=== PATIENT | female | born 1980 | race Native Hawaiian/Other Pacific Islander ===

== ENCOUNTER 2017-08-02 10:06 | Inpatient (IN) | payer OTHER ==
[2016-06-03 22:55] VITALS: BMI 24.7
[2017-08-02 11:02] LABS: BASO % 0.5 % (0.0-2.0); EOS # 0.1 K/uL (0.0-0.7); EOS % 1.7 % (0.0-4.0); HEMATOCRIT 40.1 % (34.0-47.0); LYMPH # 1.2 K/uL (1.0-4.3); LYMPH % 15.4 % (20.0-40.0); MEAN CELL VOLUME 79.9 fL (81.0-99.0); MEAN CORPUSCULAR HEMOGLOBIN 26.1 pg (27.0-31.0); MEAN CORPUSCULAR HGB CONC 32.7 g/dL (33.0-37.0); MEAN PLATELET VOLUME 9.2 fL (7.2-11.7); MONO # 0.8 K/uL (0.0-0.8); MONO % 9.7 % (0.0-10.0); NRBC % 0.3 % (0.0-2.0); RED CELL DISTRIBUTION WIDTH 13.8 % (11.5-14.5); WHITE BLOOD COUNT 7.8 K/uL (4.8-10.8)
[2017-08-02 11:07] LABS: INR 0.9
[2017-08-02 11:10] LABS: URINE BILIRUBIN NEGATIVE (NEGATIVE); URINE BLOOD NEGATIVE (NEGATIVE); URINE COLOR Straw (YELLOW); URINE GLUCOSE (UA) NORMAL (Normal); URINE KETONE NEGATIVE (NEGATIVE); URINE LEUKOCYTE ESTERASE NEG Leu/uL (Negative); URINE PROTEIN NEGATIVE (NEGATIVE); URINE UROBILINOGEN NORMAL mg/dL (0.2-1.0)
[2017-08-02 11:14] LABS: ALB/GLOB RATIO 0.8 (1.0-2.1); ALKALINE PHOSPHATASE 99 U/L (38-126); ALT/SGPT 30 U/L (9-52); AST/SGOT 31 U/L (14-36); BILIRUBIN,TOTAL 0.3 mg/dL (0.2-1.3); BLOOD UREA NITROGEN 11 mg/dL (7-17); CALCIUM 8.1 mg/dl (8.6-10.4); CARBON DIOXIDE 24 mmol/L (22-30); CHLORIDE 104 mmol/L (98-107); GFR AFRICAN-AMERICAN > 60; GLUCOSE,RANDOM 91 mg/dL (65-105); POTASSIUM 3.7 mmol/L (3.6-5.2); SODIUM 133 mmol/L (132-148); URIC ACID 6.3 mg/dL (2.2-7.5)
[2017-08-02] MEDS ORDERED: Betamethasone Soluspan 30 mg/5mL Inj Susp IM ONE (11:30)
[2017-08-02] MEDS ORDERED: Magnesium Sulfate 4 gm/100 ml 4 GM/100 ML BAG IVPB ONE ×2 (14:27→14:30)
[2017-08-02] MEDS ORDERED: Lactated Ringer's 1,000 ML IV SCH (14:30)
[2017-08-02] MEDS ORDERED: Magnesium Sulfate 20 gm 20 GM/500 ML BAG IV SCH (14:45)
[2017-08-02] MEDS ORDERED: Magnesium Sulfate 20 gm 20,000 MG/500 ML BAG IV ONE (14:49)
[2017-08-02 14:50] LABS: MAGNESIUM 1.7 mg/dL (1.6-2.3)
--- NOTE | 2017-08-02 15:18 | OBHP ---
Datetime: 08/02/2017 10:38 IP Adm Impression: , intrauterine IP Chief Complaint Other: Elevated BP IP Admit Plan: Observation/Evaluation Admit Comment, IP Provider: Patient is a 37 year old at 35w6d RICKI 08/31/17 by LMP presents to L+D from clinic for evaluation of elevated blood pressures. Patient has a history of chronic HTN yolanda t was diagnosed in 2006. Patient is on anti-hypertensive medication, however she does not remember th e name. Last took her medication last night. Offers no complaints at this time. Endorses +FM, denies CTX, LOF, VB. Admits to occasionally having headaches but denies having a headache currently. Denies dizziness, visual changes, RUQ/epigastric pain, urinary symptoms. Issues: Advanced Maternal Age Abnormal 1 hr, 3 hr within normal limits Previous C/S x 2 OB Hx: 1. 2002 PLTCD at term 2/2 "cord around baby's neck", Male infant, 3.3kg 2. 2006 RLTCD at term, Male infant, 3.7kg 3. Current GUIDE EXCURSION Hx: LMP - 11/24/16 [facility] - 13 x regular x 5 days Denies hx of fibroids, ovarian cysts, STIS Denies hx of abnormal pap smears Allergies: NKDA Medications: PNV, Medical Hx: Chronic HTN Surgical Hx: C/S x 2 Social Hx: Denies alcohol, tobacco, drug use; lives with children and , works at [employer] Hx: Mother - HTN; Father - Low blood pressure PE: See above A/P: 37 year old at 35w6d presents with elevated blood pressure -Stable, afebrile -CEFM and TOCO -Will send [facility] labs -Monitor BPs q15min -Plan d/w attending Anisa Paredes DO PGY-1 OB Addendum: Patient is taking procardia 30mg daily. PIH labs reviewed. Will give celestone. Ob attending patient examined with resident.agree with resident exam , assessmet and plan Patient referred from clinic due to elevated blood pressure.BP 140-150S/90-101 here Patient denies any symptoms A/P Patient with chronic hypertension , on procardia 30mg xl; elevated bp.patient asymptamtic.eval aute for superimposed severe pre-eclamspia -celestone -start magensiu.-start 24 hour urine collection for protein -repeat labs in am -if bp start in seveer range or patient becoems sypmtomatic then consider delivery Pelvic Type - PN: Adequate Extremities - PN: Normal Abdomen - PN: Normal Back - PN: Normal Lungs - PN: Normal Heart - PN: Normal General - PN: Normal FHR - Baseline A Provider: 125 Contraction Comments Provider: occasional Comments, ACOG Physical Exam: VS reviewed Gen: AAOx3 CV: RRR Lungs: CTA B/L Abd: soft, gravid, non-tender Ext: no clubbing, cyanosis, edema Gestation - Est Wks by US: 35.6 IP Hx Assessment: The History has been Reviewed and is Current EGA AdmitDate IP: 35.6 Vital Signs Provider: Reviewed IP Chief Complaint: Other NICHD Variability Prov Fetus A: Moderate 6-25bpm NICHD Accel Fetus A IP Provider: 15X15 FHR Category Provider Fetus A: Category I NICHD Decel Fetus A IP Provider: None Genitourinary Exam: Normal DTRs - PN: Normal
[2017-08-02] MEDS ORDERED: NIFEdipine 30 mg ER Tab PO STA (20:50)
[2017-08-03] MEDS ORDERED: Magnesium Sulfate 20 gm 20,000 MG/500 ML BAG IV ONE (01:05)
[2017-08-03 09:02] LABS: BASO % 0.5 % (0.0-2.0); HEMATOCRIT 38.9 % (34.0-47.0); LYMPH # 1.1 K/uL (1.0-4.3); LYMPH % 13.3 % (20.0-40.0); MEAN CELL VOLUME 79.3 fL (81.0-99.0); MEAN CORPUSCULAR HEMOGLOBIN 26.6 pg (27.0-31.0); MEAN CORPUSCULAR HGB CONC 33.5 g/dL (33.0-37.0); MEAN PLATELET VOLUME 8.9 fL (7.2-11.7); MONO # 0.6 K/uL (0.0-0.8); MONO % 7.1 % (0.0-10.0); RED CELL DISTRIBUTION WIDTH 14.1 % (11.5-14.5); WHITE BLOOD COUNT 8.1 K/uL (4.8-10.8)
[2017-08-03 09:18] LABS: ALB/GLOB RATIO 1.1 (1.0-2.1); ALKALINE PHOSPHATASE 108 U/L (38-126); ALT/SGPT 34 U/L (9-52); AST/SGOT 31 U/L (14-36); BILIRUBIN,TOTAL 0.4 mg/dL (0.2-1.3); BLOOD UREA NITROGEN 15 mg/dL (7-17); CALCIUM 6.9 mg/dl (8.6-10.4); CARBON DIOXIDE 17 mmol/L (22-30); CHLORIDE 102 mmol/L (98-107); GFR AFRICAN-AMERICAN > 60; GLUCOSE,RANDOM 118 mg/dL (65-105); POTASSIUM 4.3 mmol/L (3.6-5.2); SODIUM 130 mmol/L (132-148); TOTAL PROTEIN 6.9 g/dL (6.3-8.3); URIC ACID 7.8 mg/dL (2.2-7.5)
[2017-08-03 09:22] LABS: INR 0.9
[2017-08-03 10:19] LABS: MAGNESIUM 4.1 mg/dL (1.6-2.3)
--- NOTE | 2017-08-03 11:31 | US ---
Indication: Chronic hypertension Comparison: None available Technique: OB limited/biophysical profile ultrasound Findings: There is a single living fetus in cephalic presentation. Amniotic fluid volume is within normal limits, 13.0 cm. Anterior placenta. The placenta is not previa. There are no adnexal masses or cysts evident. Measurements and calculations: Fetus has a composite sonographic age of 35 weeks 2 days. This calculation is based on the biparietal diameter, head circumference, abdominal circumference, and femur length. Estimated heart rate 118.4 beats per min. Umbilical cord appears draped around the neck. Prominent/dilated left collecting system. Please note that a whole anatomic survey of the fetus was not performed. This should be performed on an outpatient elective basis as clinically warranted. movements 2/2 breathing 2/2 tone 2/2 Amniotic fluid 2/2 Total score impression: 03/29 Impression: Live single intrauterine with estimated gestational age 35 weeks 2 days. heart rate 118.4 bpm. Biophysical profile of 8 out of 8. Prominent/dilated left collecting system. Umbilical cord appears draped around the neck.
[2017-08-03] MEDS ORDERED: Betamethasone Soluspan 30 mg/5mL Inj Susp IM ONE (12:30)
--- NOTE | 2017-08-03 13:17 | OBPN ---
Datetime: 08/03/2017 08:45 IP Progress Impression Other: Chronic HTN, on mag sulfate IP Progress Plan: Continue present management Contraction Comments Provider: occasional FHR - Baseline A Provider: 120 IP Progress Note Comment: Patient is doing well this morning. Admits to feeling dizziness. Endorses +FM, denies CTX, VB, LOF. Denies headaches, visual changes, cp, palpitations, sob, RUQ/epigastric kathya n. Patient states that she was taking a different blood pressure prior to however does not know the name of the medication. VSS Gen: AAOx3 CV: RRR Lungs: CTA B/L Abd: Soft, gravid, no RUQ/epigastric tenderness Ext: No clubbing, cyanosis, edema; no calf tenderness; UE/LE reflexes +2/4 A/P: 37 year old at 36w2d with Chronic HTN on Procardia XL, AMA, previous C/S x 2 who was admitted for elevated BPs -Stable, afebrile -CEFM and TOCO -BPs normatensive -Continue mag sulfate -Repeat PIH labs this am, 24 hour urine collection in progress -Will send for OB US/BPP today -To recieve second dose of celestone -Plan discussed with attending Anisa Paredes DO PGY-1 OB Addendum (12:50pm): Patient is s/p mag sulfate and celestone x 2 doses. Repeat PIH labs reviewe d. BPP 03/29. 24 hour urine collection completed. Recommending patient return to L+D on Tuesday08/08/17 for weekly NST. Patient will continue Procardia XL 30mg QHS, Pre-term labor precautions given. Ghazalae nt to follow up with [facility] in 1 week. Plan discussed attending. Attending Note (1300 hours): Patient has been seen, evaluated, interviewed and exmained by me with the Resident. I agree with the documentation of events as described above. [facility] RICKI 08/29/17 by ultrasound 7/15/17 at 14w 5d, confirming AGA today 36w 2d. Repeat C/S to be scheduled at 39 weeks = 08/23/17 (with BTL). Patient given strict instructions re: taking h er medication as prescribed. Risk, possible adverse outcomes from non complicance were stressed. Ghazala ent also encouraged to increase p.o. intake of water to the order of half her weight in ounces on a d aily basis. S/S pre-eclampsia and PTL were also erviewed. Patient expressed an understanding and agr ees. Her questions and concerns were answered and addressed. Patient discharged home in stable condi tion. Vital Signs Provider: Reviewed; Within Normal Limits NICHD Accel Fetus A IP Provider: 15X15 FHR Category Provider Fetus A: Category I NICHD Variability Prov Fetus A: Moderate 6-25bpm NICHD Decel Fetus A IP Provider: None Datetime: 08/02/2017 10:38 Gestation - Est Wks by US: 35.6
== END 2017-08-03 13:20 | disposition home or self-care (01) | DRG 886 ==
LOC: C.EROB 10:06 → C.4D 14:34
PROVIDERS: ADMIT Student in an Organized Health Care Education/Training Program; ATTEND Student in an Organized Health Care Education/Training Program
DX: O10.913 Unspecified pre-existing hypertension complicating pregnancy, third trimester (principal); I10 Essential (primary) hypertension; O34.219 Maternal care for unspecified type scar from previous cesarean delivery; Z3A.36 36 weeks gestation of pregnancy; O09.523 Supervision of elderly multigravida, third trimester

== ENCOUNTER 2017-08-08 09:16 | Inpatient (IN) | payer OTHER ==
[2017-08-08 09:28] VITALS: BMI 31.1
[2017-08-08] MEDS ORDERED: Labetalol 25mg/5ml Syringe IVP STA ×2 (09:28→10:23)
[2017-08-08 10:11] LABS: BASO # 0.1 K/uL (0.0-0.2); BASO % 0.9 % (0.0-2.0); EOS # 0.2 K/uL (0.0-0.7); HEMATOCRIT 39.5 % (34.0-47.0); LYMPH # 1.6 K/uL (1.0-4.3); LYMPH % 20.1 % (20.0-40.0); MEAN CELL VOLUME 79.6 fL (81.0-99.0); MEAN CORPUSCULAR HEMOGLOBIN 26.6 pg (27.0-31.0); MEAN CORPUSCULAR HGB CONC 33.4 g/dL (33.0-37.0); MEAN PLATELET VOLUME 8.9 fL (7.2-11.7); MONO # 0.7 K/uL (0.0-0.8); MONO % 8.2 % (0.0-10.0); NRBC % 0.1 % (0.0-2.0); RED CELL DISTRIBUTION WIDTH 14.1 % (11.5-14.5); WHITE BLOOD COUNT 8.2 K/uL (4.8-10.8)
[2017-08-08 10:22] LABS: INR 0.9
[2017-08-08 10:23] LABS: ALB/GLOB RATIO 0.8 (1.0-2.1); ALKALINE PHOSPHATASE 104 U/L (38-126); ALT/SGPT 38 U/L (9-52); AST/SGOT 31 U/L (14-36); BILIRUBIN,TOTAL 0.3 mg/dL (0.2-1.3); BLOOD UREA NITROGEN 12 mg/dL (7-17); CARBON DIOXIDE 24 mmol/L (22-30); CHLORIDE 102 mmol/L (98-107); GFR AFRICAN-AMERICAN > 60; GLUCOSE,RANDOM 91 mg/dL (65-105); POTASSIUM 4.2 mmol/L (3.6-5.2); SODIUM 131 mmol/L (132-148); TOTAL PROTEIN 7.9 g/dL (6.3-8.3); URIC ACID 6.8 mg/dL (2.2-7.5)
[2017-08-08 10:28] LABS: URINE BILIRUBIN NEGATIVE (NEGATIVE); URINE BLOOD NEGATIVE (NEGATIVE); URINE COLOR Straw (YELLOW); URINE GLUCOSE (UA) NORMAL (Normal); URINE KETONE NEGATIVE (NEGATIVE); URINE LEUKOCYTE ESTERASE NEG Leu/uL (Negative); URINE PROTEIN NEGATIVE (NEGATIVE); URINE UROBILINOGEN NORMAL mg/dL (0.2-1.0)
[2017-08-08] MEDS ORDERED: Sodium Citrate/Citric Acid 15 ml Sol PO ONE (11:13)
[2017-08-08] MEDS ORDERED: Lactated Ringer's 1,000 ML IV SCH (11:15)
[2017-08-08] MEDS ORDERED: Magnesium Sulfate 4 gm/100 ml 4 GM/100 ML BAG IVPB ONE ×2 (11:16→11:19)
[2017-08-08] MEDS ORDERED: cefOXitin 2 GM in Sodium Chloride 0.9% 100 ML IV SCH (12:00)
[2017-08-08] MEDS ORDERED: Magnesium Sulfate 20 gm 20,000 MG/500 ML BAG IV ONE (12:04)
[2017-08-08] MEDS: Magnesium Sulfate 20 gm 20 GM/500 ML BAG IV SCH (12:06)
[2017-08-08] MEDS ORDERED: cefOXitin 2 GM in Dextrose 5% In Water 100 ML IV ONE (15:00)
--- NOTE | 2017-08-08 23:59 | OBHP ---
Datetime: 08/08/2017 23:38 IP Adm Impression: Term, intrauterine IP Chief Complaint Other: NST IP Adm Impression Other: Uncontrolled chronic HTN IP Admit Plan: Admit to unit; Initiate Section protocol Admit Comment, IP Provider: 37 y.o. , RICKI 08/29/17, EGA 37w 1d presented for F/U NST - h/o chroni c HTN; S/P admission 08/02 - 08/03 for uncontrolled HTN. Received celestone that admissin; sent home to continue procardia XR 30 mg po QHS. 1st BP 168/105 - denies headaches, blurred vision, RUQ or epi gastric pain. Decision made to push labetalol 20 mg IVP x 1. Repeat BP 171/114 - second dose of labet alol IVP administered. Repeat BP 150/104; hydralazine 5 mg IVP given. Patient states took anti-HTN me ds last night, and has been taking it regularly. By this time, approximately 1100 hours, consultatio n made with M, Dr. Greer, who recommended delivery due to uncontrolled HTN. (+) AFM; denies LOF, VB, Ctx Issues: Advanced Maternal Age Abnormal 1 hr, 3 hr within normal limits Previous C/S x 2 OB Hx: 1. 2002 PLTCD at term 2/2 "cord around baby's neck", Male , 3.3kg 2. 2006 RLTCD at term, Male , 3.7kg 3. Current COLORS CUSTODIAN Hx: LMP - 11/24/16 [facility] - 13 x regular x 5 days Denies hx of fibroids, ovarian cysts, STIS Denies hx of abnormal pap smears Allergies: NKDA Medications: PNV, procardia XR 30 mg po QD Medical Hx: Chronic HTN, 2006 Surgical Hx: C/S x 2 Social Hx: Denies alcohol, tobacco, drug use; lives with children and , works at [employer] Hx: Mother - HTN; Father - Low blood pressure P.E.: as above. mildy obese in NAD. Awake, alert, oriented to time person and place. FOB present Assessment: 37 y.o. P2, 37 weeks, uncontrolled chronic HTN - S/P IVP of 2 meds. After hydralzaine , BP 144/100, then 135/99. recommendation for delivery was discussed withthe patient: she expressed an understanidng and agrees. Patient had drunk glas of milk 0730 hours; not eaten since last night. C ategory 1 tracing. Blood work and urine sent on presentaiton - no evidence of pre-eclampsia. Clinica ystble. Plan: 1) Admit 2) NPO 3) magnesium had been loaded - continue with maintenance dosage until delivery 4) Abdominal prep and shave 5) Notify anesthesia 6) Notify peds 7) Mefoxin 8) playground monitor to O.R. - patient desires permanent sterilization. Same was reaaffirmed. Pelvic Type - PN: Not Done Extremities - PN: Normal Abdomen - PN: Normal Back - PN: Normal Breast - PN: Not Done Lungs - PN: Normal Heart - PN: Normal Thyroid - PN: Not Done Neurologic - PN: Normal HEENT - PN: Normal General - PN: Normal FHR - Baseline A Provider: 140 Membranes, Provider: Intact Contraction Comments Provider: irregular Comments, ACOG Physical Exam: Abdomen: Gravid. Soft. Non tender in all quadrants All other systems reviewed and are negative EGA AdmitDate IP: 36.5 IP Indication for Induction: Not Applicable IP Chief Complaint: Other NICHD Variability Prov Fetus A: Moderate 6-25bpm FHR Category Provider Fetus A: Category I Dilatation, Provider: deferredirregular Genitourinary Exam: Not Done DTRs - PN: Not Done Datetime: 08/03/2017 08:45 Vital Signs Provider: Reviewed; Within Normal Limits NICHD Accel Fetus A IP Provider: 15X15 NICHD Decel Fetus A IP Provider: None
--- NOTE | 2017-08-09 00:05 | OBDS ---
DELIVERY PERSONNEL Delivery Doctor: vashti Scrub Nurse: Celine Bruce OBT Colorer Hides And Skins: Reggie Jane RN Anesthesiologist: deep MATERNAL INFORMATION Delivery Anesthesia: Spinal Medications in Delivery: pitocin 20+20 Estimated Blood Loss (ml): 700 Placenta Cultured: No Maternal Complications: Other Other Maternal Complications: htn Provider Comments: Uncomplicated repeat LTCS with atraumatic delivery of live male infant, nuchal co rd x 2 - easliy reduced over 's head. 1 cm laceration was inflicted upon the on the lef t cheek, during making the uterine incision. This was addressed by the fashion styling intern immediately; and mother was informed of this immediately. Mother saw her and the laceration while in the O.R. Bilateral tubal ligation performed without incident. Hemostasis assured throughout the procedure. LABOR SUMMARY EDC: 08/31/2017 00:00 No. Babies in Womb: 1 LABOR INFORMATION Group B Beta Strep: Done, Result Unknown Antibiotics # of Doses: 1 Antibiotics Time of Last Dose: 3 18 MEMBRANES Membranes Rupture Method: Artificial Rupture of Membranes: 08/08/2017 16:18 Length of Rupture (hrs): 0.02 Amniotic Fluid Color: Clear Amniotic Fluid Amount: Moderate Amniotic Fluid Odor: Normal STAGES OF LABOR Stage 3 hrs: 0 Stage 3 min: 1 VAGINAL DELIVERY Episiotomy: None Laceration Extension: N/A Laceration Type: None CSECTION DELIVERY Primary Indication: Uncontrolled chronic HTN CSection Urgency: Emergency CSection Incidence: Repeat Labor: N/A Elective: Nonelective CSection Incision: Lower Uterine Transverse Sterilization Procedure: [place] Uterine Closure: Double-layer closure BABY A INFORMATION Infant Delivery Date/Time: 08/08/2017 16:19 Method of Delivery: Born in Route : No : N/A Forceps: N/A Vacuum Extraction: N/A Shoulder Dystocia : No SHOULDER DYSTOCIA BABY A Infant Delivery Date/Time: 08/08/2017 16:19 PRESENTATION/POSITION BABY A Presentation: Cephalic Cephalic Presentation: Vertex Vertex Position: Right Occipital Transverse Breech Presentation: N/A PLACENTA INFORMATION BABY A Placenta Delivery Time : 08/08/2017 16:20 Placenta Method of Delivery: Manual Removal Placenta Status: Delivered SCORES BABY A Heart Rate 1 min: >100 bpm Resp Effort 1 min: Good Cry Reflex Irritability 1 min: Cough or Sneeze or Pulls Away Muscle Tone 1 min: Active Motion Color 1 min: Body Realitos, Extremities Blue Resuscitation Effort 1 min: Tactile Stimulation SCORE 1 MIN: 9 Heart Rate 5 min: >100 bpm Resp Effort 5 min: Good Cry Reflex Irritability 5 min: Cough or Sneeze or Pulls Away Muscle Tone 5 min: Active Motion Color 5 min: Body Realitos, Extremities Blue SCORE 5 MIN: 9 INFORMATION BABY A Gestational Age at Delivery: 36.5 Gestational Status: Outcome : Liveborn Infant Condition : Stable Infant Sex: Male IDENTIFICATION/MEDS BABY A ID Band Number: [id number] ID Band Location: Left Leg; Left Arm Sensor Applied: Yes Sensor Number: [id number] Sensor Location : Cord Clamp WEIGHT/LENGTH BABY A Birthweight (gms): 2830 Weight (lb): 6 Weight (oz): 4 Infant Length Inches: 18.00 Infant Length cms: 45.7 CORD INFORMATION BABY A No. Cord Vessels: 3 Nuchal Cord : Around Neck x2, Loose Cord Blood Taken: Yes Infant Suction: Mouth; Nose ASSESSMENT BABY A Infant Complications: None Physical Findings at Delivery: Within Normal Limits Infant Respirations: Appears Normal Choirmaster/ALS Called : No Infant Care By: dr aleman Transferred To: Nursery
[2017-08-09] MEDS: Magnesium Sulfate 20 gm 20 GM/500 ML BAG IV SCH (00:11)
[2017-08-09] MEDS ORDERED: Magnesium Sulfate 20 gm 20,000 MG/500 ML BAG IV ONE (00:15)
[2017-08-09] MEDS: Simethicone 80 mg Chewtab PO SCH ×5 (00:16→22:27)
[2017-08-09] MEDS: Oxycodone/Acetaminophen 5/325 mg Tab PO PRN ×4 (03:13→22:32)
[2017-08-09] MEDS ORDERED: Oxycodone/Acetaminophen 5/325 mg Tab ONE (03:14)
[2017-08-09 08:52] LABS: BASO % 0.2 % (0.0-2.0); EOS % 0.1 % (0.0-4.0); MEAN PLATELET VOLUME 8.6 fL (7.2-11.7)
[2017-08-09 09:01] LABS: HEMATOCRIT 32.4 % (34.0-47.0); LYMPH % 6.1 % (20.0-40.0); MEAN CELL VOLUME 79.6 fL (81.0-99.0); MEAN CORPUSCULAR HEMOGLOBIN 26.7 pg (27.0-31.0); MEAN CORPUSCULAR HGB CONC 33.6 g/dL (33.0-37.0); MONO # 0.8 K/uL (0.0-0.8); MONO % 5.3 % (0.0-10.0); PLATELET COUNT 294 K/uL (130-400); RED CELL DISTRIBUTION WIDTH 13.9 % (11.5-14.5)
[2017-08-09 09:03] LABS: WHITE BLOOD COUNT 15.8 K/uL (4.8-10.8)
[2017-08-09 09:54] LABS: NEUTROPHIL 86 % (50-75); TOTAL CELLS COUNTED 100
--- NOTE | 2017-08-09 12:49 | OBPPN ---
Datetime: 08/09/2017 12:44 PP Pain Prov: Within normal limits PP Nausea Prov: Denies PP Flatus Prov: Yes PP BM Prov: No PP Heart Prov: Normal PP Lungs Prov: Normal PP Abdomen/Uterus Prov: Normal PP Lochia Prov: Normal PP CVA Tenderness Prov: Normal PP Extremities Prov: Normal PP C/S Incision Prov: Normal PP Progress Prov: Normal PP Impression Prov: Normal progression PP Plan Prov: Continue present management PP Progress Note Prov: S-patient reports that her pain is well controlled.denies nausea, vomiting, c hest pain, shortness of breath Ambulating and voiding without difficulty O-VSS Afebrile Fundus firm and below umbilicus incision clean dry and intact extremities no calf tenderness A/P Patient s/p csection pod 1 doing well -continue routine care Vital Signs Provider PP: Reviewed; Within Normal Limits
[2017-08-09 16:04] VITALS: O2SAT 98
[2017-08-09] MEDS ORDERED: Bisacodyl 5mg EC Tab PO ONE (17:47)
[2017-08-10 07:21] LABS: BASO % 0.3 % (0.0-2.0); EOS # 0.1 K/uL (0.0-0.7); EOS % 0.6 % (0.0-4.0); HEMATOCRIT 27.3 % (34.0-47.0); LYMPH # 1.1 K/uL (1.0-4.3); LYMPH % 7.1 % (20.0-40.0); MEAN CELL VOLUME 79.5 fL (81.0-99.0); MEAN PLATELET VOLUME 8.4 fL (7.2-11.7); MONO # 0.9 K/uL (0.0-0.8); PLATELET COUNT 263 K/uL (130-400); RED CELL DISTRIBUTION WIDTH 14.2 % (11.5-14.5)
[2017-08-10] MEDS: Oxycodone/Acetaminophen 5/325 mg Tab PO PRN ×2 (08:44→13:57)
[2017-08-10 09:05] LABS: NEUTROPHIL 92 % (50-75); TOTAL CELLS COUNTED 100
[2017-08-10] MEDS: Simethicone 80 mg Chewtab PO SCH ×4 (09:47→21:27)
--- NOTE | 2017-08-10 21:13 | OBPPN ---
Datetime: 08/10/2017 20:25 PP Pain Prov: Within normal limits PP Nausea Prov: Denies PP Flatus Prov: Yes PP BM Prov: No PP Breasts Prov: Normal PP Heart Prov: Normal PP Lungs Prov: Normal PP Abdomen/Uterus Prov: Normal PP Lochia Prov: Normal PP Vulva/Perineum Prov: Not Done PP CVA Tenderness Prov: Normal PP Extremities Prov: Normal PP C/S Incision Prov: Normal PP Progress Prov: Normal PP Impression Prov: Normal progression PP Plan Prov: Continue present management PP Progress Note Prov: Patient was seen and examined at bedside. Patient states that she is doing we ll and has no complaints. Patient admits to moderate lochia, passing flatus, urinating without diffic ulty. Patient denies bowel movement, fever, chills, nausea, dizzness and calf tenderness. Patient is breast feeding and bottle feeding VS: BP: 128/85, HR: 85, Temp: 97.5 Physical Examination Gen: AAOx3, NAD Cardio: RRR, normal S1,S2 Pulm: CTA bilaterally Abdomen: Soft, fundus is firm and one finger breath below the umbilicus. Incision with subcuticula r closure - clean, dry and intact. Ext: + 1 pitting edema, no cyanosis and no clubbing; no calf tenderness Labs: 8.2>13.2/39.5<308, 15.8>10.9/32.4<294, 15.0>9.3/27.3<263 B+, Rubella immune A/P: Izabela is 37 year old at 37 weeks and 1 day who is now S/P uncomplicated rep eat LTCS with bilateral tubal ligation; chronic hypertension - BP stable, POD #2 1. Afebrile 2. Pain control with percocet and motrin 3. Chronic Hypertension: controlled with labetalol 100mg PO BID and low sodium diet 4. Encourage ambulation, hydration, ISS use 5. Encourage breast feeding 6. Continue routine post- care 7. Anticipate discharge tomorrow 8. Plans discussed with attending Alethea Quevedo DO, PGY-1 Attending Note: Patient seen and evaluated by me with the residents earlier this morning. I agre e with the documentaiton of events as above. NB: keno writer/runner looked at the laceration on the left cheek of the : appears to be healing well - no swelling; no bleeding. Chr HTN on labetalol - stable Plan:- as above. IP PP Procedures: Tubal Ligation Vital Signs Provider PP: Reviewed; Within Normal Limits
[2017-08-11] MEDS: Oxycodone/Acetaminophen 5/325 mg Tab PO PRN (07:02)
--- NOTE | 2017-08-11 08:16 | OBDCSUM ---
Datetime: 08/11/2017 08:13 Discharged to, Provider: Home Follow up at, Provider: Kash Disch Instr Activity: Normal activity Disch Instr Diet: Restricted, specify Discharge Diet restrict Prov: low salt Discharge Instructions, Provider: Routine instructions given Discharge Diagnosis, Provider: Term Delivered Discharge Time: 08/11/2017 08:13 Follow up in weeks, Provider: 1 week Disch Referrals: None Contraception discussed, Prov: Yes Disch Activity Restrictions: No sexual activity; Nothing in vagina - [place], tampons, douche Discharge Comment, Provider: follow up clinic 1 week for bp cand incisin check if sever pain, heavy bleeding more than 2 pad/ hour, chest pain, shortness of breattha, headchaes, blurry vision, go to nearst ER and call your doctor Discharge Diagnosis Prov Other: chronic htn Contraception after Delivery: Not Planning to Use
--- NOTE | 2017-08-11 08:16 | OBPPN ---
Datetime: 08/11/2017 08:11 PP Pain Prov: Within normal limits PP Nausea Prov: Denies PP Flatus Prov: Yes PP BM Prov: Yes PP Breasts Prov: Normal PP Heart Prov: Normal PP Lungs Prov: Normal PP Abdomen/Uterus Prov: Normal PP Lochia Prov: Normal PP Vulva/Perineum Prov: Normal PP CVA Tenderness Prov: Normal PP Extremities Prov: Normal PP C/S Incision Prov: Not Applicable PP Progress Prov: Normal PP Impression Prov: Normal progression PP Plan Prov: Discharge PP Progress Note Prov: Patient was seen and examined at bedside. Patient states that she is doing we ll and has no complaints. Patient admits to moderate lochia, passing flatus, urinating without diffic ulty. Patient denies bowel movement, fever, chills, nausea, dizzness and calf tenderness. Patient is breast feeding and bottle feeding VSS Physical Examination Gen: AAOx3, NAD Breast: Nt, non engorged b/l Cardio: RRR, normal S1,S2 Pulm: CTA bilaterally Abdomen: Soft, fundus is firm and one finger breath below the umbilicus. Incision with subcuticula r closure - clean, dry and intact. Ext: + 1 pitting edema, no cyanosis and no clubbing; no calf tenderness Labs: 8.2>13.2/39.5<308, 15.8>10.9/32.4<294, 15.0>9.3/27.3<263 B+, Rubella immune A/P: Paitent is 37 y/o S/P repeat LTCS with bilateral tubal ligation; chronic hypertension - BP st able, POD #3 d/c home rto 1 week incicsion check and bp precaitons precautins given IP PP Procedures: None Vital Signs Provider PP: Reviewed; Within Normal Limits
[2017-08-11 08:34] VITALS: BP 119/75; PULSE 83; RESP 18; TEMP 97.7
[2017-08-11] MEDS: Simethicone 80 mg Chewtab PO SCH (10:13)
== END 2017-08-11 13:00 | disposition home or self-care (01) | DRG 651 ==
LOC: C.EROB 09:16 → C.4D 10:24 → C.4M 08-09 09:23
PROVIDERS: ADMIT Obstetrics & Gynecology; ATTEND Obstetrics & Gynecology
PROC: 10D00Z1 Extraction of Products of Conception, Low, Open Approach (ICD-10-PCS; principal; 2017-08-08)
PROC: 0UB70ZZ Excision of Bilateral Fallopian Tubes, Open Approach (ICD-10-PCS; 2017-08-08)
DX: O10.92 Unspecified pre-existing hypertension complicating childbirth (principal); O34.211 Maternal care for low transverse scar from previous cesarean delivery; O60.14X0 Preterm labor third trimester with preterm delivery third trimester, not applicable or unspecified; I10 Essential (primary) hypertension; O69.81X0 Labor and delivery complicated by cord around neck, without compression, not applicable or unspecified; Z30.2 Encounter for sterilization; Z3A.36 36 weeks gestation of pregnancy; Z37.0 Single live birth